=== PATIENT | male | born 1985 | race Caucasian/White ===

== ENCOUNTER 2024-09-02 21:03 | Emergency (ER) | payer MEDICAID, SELFPAY ==
--- NOTE | ~2024-09-02 | CT_ITS ---
CLINICAL HISTORY: pain CT abdomen and pelvis with contrast Comparison: None Findings: No consolidation or effusion. The gallbladder is significantly contracted. No biliary ductal dilatation. The liver, spleen, pancreas, adrenal glands and kidneys are unremarkable. No ureteral stones and no hydronephrosis hydroureter. No bowel obstruction, pneumoperitoneum, or pneumatosis. Normal appendix. No free fluid. Stomach is distended with ingested food. Urinary bladder only mildly filled with apparent wall thickening. Prostate is normal in size. Abdominal aorta is normal in size. Degenerative disc disease at L4-5 and L5-S1 IMPRESSION: 1. No acute findings. 2. Apparent urinary bladder wall thickening could be from bladder decompression but cystitis not excluded. Correlate with urinalysis. This document has been electronically signed by: Eugenia Ferguson MD on 09/03/2024 00:13:35
[2024-09-02 21:48] VITALS: BP 124/60; PULSE 75; RESP 16; TEMP 36.7; O2SAT 98; BMI 22.5
[2024-09-02 22:17] LABS: MANUAL DIFF FLAG NO
[2024-09-02 22:19] LABS: Basophils Percent Auto 0.3 % (0-2); Eosinophils Percent Auto 0.2 % (0-4); Hematocrit 39.2 % (42.0-52.0); Hemoglobin 13.7 g/dl (14.0-18.0); Imm Gran Abs Auto 0.03 X10*3/uL (0.00-0.03); Imm Gran Pct Auto 0.3 % (0.0-0.4); Lymphocytes Absolute Auto 2.6 X10*3/uL (1.2-4.9); Lymphocytes Percent Auto 23.6 % (20-40); Mean Corpuscular HGB Conc 34.9 g/dl (31.0-36.0); Mean Corpuscular Volume 91.6 fL (80.0-98.0); Mean Platelet Volume 10.3 fL (9.4-12.4); Monocytes Absolute Auto 0.7 X10*3/uL (0.1-1.2); Monocytes Percent Auto 5.8 % (2-11); Neutrophils Absolute Auto 7.8 x10*3/uL (2.0-8.3); Neutrophils Percent Auto 69.8 % (45-73); Platelet Count 247 X10*3/uL (160-400); Red Blood Count 4.28 X10*6/uL (4.60-5.80); Red Cell Distribution Width 12.6 % (11.0-16.0); White Blood Count 11.2 X10*3/uL (4.8-10.8)
[2024-09-02 22:20] LABS: Appearance Urine Clear; Color Urine Yellow; Glucose Urine UA Negative (Negative); Leukocyte Esterase Urine Negative (Negative); Nitrite Urine Negative (Negative); PH 5.5 (5.0-9.0); Specific Gravity - Urine >= 1.030 (1.005-1.025); Urine Blood Negative (Negative); Urine Ketones Trace mg/dL (Negative); Urine Protein Trace mg/dL (Neg-Trace)
[2024-09-02 22:35] LABS: Alanine Aminotransferase 13 U/L (0-40); Albumin Level 4.1 g/dL (3.5-5.0); Alkaline Phosphatase 71 U/L (39-117); Anion Gap 12 (12-20); Aspartate Amino Transferase 30 U/L (5-37); Bilirubin Total 0.3 mg/dL (0.0-1.0); Blood Urea Nitrogen 18 mg/dL (9-16); Calcium 8.7 mg/dL (8.4-10.2); Carbon Dioxide 29 mmol/L (22-29); Chloride 107 mmol/L (96-108); Creatinine Clr Calc Pharmacy 111.1; Estimated Glomerular Filt Rate > 60; Glucose Random 84 mg/dL (60-115); Lipase 21 U/L (8-78); Potassium 3.5 mmol/L (3.3-5.1); Sodium 144 mmol/L (135-145); Total Protein 7.1 g/dL (6.5-8.0)
--- OUTSIDE RECORDS SUMMARY | 2024-09-02 22:50 | XMS_ITS | Encounter Summary ---
Author Organization [facility] Address [address] [place] [address] Care Team Providers Care Date Night Caregiver Name Role Phone Matthew Wyatt MD Primary Care Provider [phone] Matthew Wyatt MD Unavailable [phone] Emilie Carrera Unavailable Rosalinda Baez MD Primary Care Provider [phone] Rosalinda Baez MD Unavailable Ramandeep Espinal PA-C Primary Care Provider [phone] Reason for Visit * Reason Comments Medication Refill Encounter Details Date Type Department Care Team (Late st Contact Info) Description 02/20/2021 Refill [facility] [address] [address] Matthew Wyatt MD [address] [place] [address] Insomnia, unspecified type Social History Tobacco Use Types Packs/Day Years Used Date Smoking Tobacco: Never Smokeless Tobacco: Never Alcohol Use Standard Drinks/Week Comments No 0 (1 standard drink = 0.6 oz pur e alcohol) PHQ-2 Answer Date Recorded PHQ-2 Total Score 3 09/26/2020 Sex and Gender Information Value Date Recorded Sex Assigned at Male 05/21/2024 8:18 PM EST Gender Identity Male 01/17/2023 11:55 AM EDT Sexual Orientation Heterosexual (straight) 05/21 8:18 PM EST COVID-19 Exposure Response Date Recorded In the last month, have you been in contact with someone who was confirmed or suspected to have Coronavirus / COVID-19? No / Unsure 02/18/2021 4:01 PM EDT documented as of this encounter Plan of Treatment Not on file documented as of this encounter Visit Diagnoses Diagnosis Insomnia, unspecified type documented in this encounter Care Teams Date Night Caregiver Relationship Specialty Start Date End Date Matthew Wyatt MD PCP - General Family Medicine 04/02/16 03/10/22 Matthew Wyatt MD [address] [place] [address] PCP - PCMH+ Attributed 05/30/19 2 Rosalinda Baez MD [address] [place] [address] PCP - General Family Medicine 03/11/22 01/16/23 Rosalinda Baez MD [address] [place] [address] PCP - PCMH+ Attributed 02/27/22 Ramandeep Espinal PA-C [address] [place] [address] PCP - General Adult Health - PA/APNP/NETWORK/TELECOM ENGINEER/BOOKING AGENT 01/17/23 Emilie Carrera [address] [address] ICP Transmission Systems Operator 04/18/2010/12 documented as of this encounter
--- OUTSIDE RECORDS SUMMARY | 2024-09-02 22:50 | XMS_ITS | Encounter Summary ---
Author Organization [facility] Address [address] [place] [address] Care Team Providers Care Douper Name Role Phone Matthew Wyatt MD Primary Care Provider [phone] Matthew Wyatt MD Unavailable [phone] Lisa Velásquez LCSW Unavailable [phone] Emilie Carrera Unavailable Rosalinda Baez MD Primary Care Provider [phone] Rosalinda Baez MD Unavailable Ramandeep Espinal PA-C Primary Care Provider [phone] Encounter Details Date Type Department Care Team (Late st Contact Info) Description 06/16/2016 Scanned Document [address] [phone] Matthew Wyatt MD [address] [place] [address] Social History Tobacco Use Types Packs/Day Years Used Date Smoking Tobacco: Unknown Alcohol Use Standard Drinks/Week Comments No 0 (1 standard drink = 0.6 oz pur e alcohol) Sex and Gender Information Value Date Recorded Sex Assigned at Male 05/21/2024 8:18 PM EST Gender Identity Male 01/17/2023 11:55 AM EDT Sexual Orientation Heterosexual (straight) 05/21 8:18 PM EST documented as of this encounter Plan of Treatment Not on file documented as of this encounter Visit Diagnoses Not on filedocumented in this encounter Care Teams Douper Relationship Specialty Start Date End Date Matthew Wyatt MD PCP - General Family Medicine 04/02/16 03/10/22 Matthew Wyatt MD [address] [place] [address] PCP - PCMH+ Attributed 05/30/19 2 Rosalinda Baez MD [address] [place] [address] PCP - General Family Medicine 03/11/22 01/16/23 Rosalinda Baez MD [address] [place] [address] PCP - PCMH+ Attributed 02/27/22 Ramandeep Espinal PA-C [address] [place] [address] PCP - General Adult Health - PA/APNP/MOLD FILLER AND DRAINER/CASH RECONCILIATION SPECIALIST 01/17/23 Lisa Velásquez, PROTOTYPE MACHINIST [address] [place] [address] ICP PCMH+ Facility Service Manager 01/10/18 06/24/19 Emilie Carrera [address] [facility] [address] [place] [address] ICP Inorganic Chemistry Professor 04/18/2010/12 documented as of this encounter
--- OUTSIDE RECORDS SUMMARY | 2024-09-02 22:50 | XMS_ITS | Encounter Summary ---
Author Organization [facility] Address [address] [place] [address] Care Team Providers Care Classification Analyst Name Role Phone Ramandeep Espinal PA-C Primary Care Provider [phone] Encounter Details Date Type Department Care Team (Late st Contact Info) Description 04/12/2023 Scanned Document [facility] [address] [facility] [place] [address] Checo Wu MD [address] [facility] [place] [facility] [address] [place] [address] Social History Tobacco Use Types Packs/Day Years Used Date Smoking Tobacco: Never Smokeless Tobacco: Never Alcohol Use Standard Drinks/Week Comments No 0 (1 standard drink = 0.6 oz pur e alcohol) PHQ-2 Answer Date Recorded PHQ-2 Total Score 6 03/11/2022 Sex and Gender Information Value Date Recorded Sex Assigned at Male 05/21/2024 8:18 PM EST Gender Identity Male 01/17/2023 11:55 AM EDT Sexual Orientation Heterosexual (straight) 05/21 8:18 PM EST documented as of this encounter Plan of Treatment Not on file documented as of this encounter Procedures Procedure Name Priority Date/Time Associated Diagnosis Comments PATHOLOGY REPORT 04/12/2023 12:0 0 AM EST documented in this encounter Results * PATHOLOGY REPORT (04/12/2023 12:00 AM EST) Checo Wu MD PATHOLOGY/CYTOLO GY ORDERABLES documented in this encounter Visit Diagnoses Not on filedocumented in this encounter Care Teams Classification Analyst Relationship Specialty Start Date End Date Ramandeep Espinal PA-C PCP - General Adult Health - PA/APNP/UTILITY OPERATOR YARN/BRICK STACKER 01/17/23 documented as of this encounter
--- OUTSIDE RECORDS SUMMARY | 2024-09-02 22:50 | XMS_ITS | Encounter Summary ---
Author Organization [facility] Address [address] [place] [address] Care Team Providers Care Index Clerk Name Role Phone Ramandeep Espinal PA-C Primary Care Provider [phone] Encounter Details Date Type Department Care Team (Late st Contact Info) Description 06/25/2023 Scanned Document [address] [place] [phone] Provider, Generic Social History Tobacco Use Types Packs/Day Years [...] Procedure Name Priority Date/Time Associated Diagnosis Comments HX OUTSIDE ORDER 06/25/2023 documented in this encounter Results * HX OUTSIDE ORDER (06/25/2023) Narrative 06/25/2023 Ordered by an unspecified provider. Generic Provider HX AMB PROCEDURES documented in this encounter Visit Diagnoses Not on filedocumented in this encounter Care Teams Index Clerk Relationship Specialty Start Date End Date Ramandeep Espinal PA-C PCP - General Adult Health - EMELY/MESERET/BOOT MAKER/TONJA 01/17/23 documented as of this encounter
--- OUTSIDE RECORDS SUMMARY | 2024-09-02 22:50 | XMS_ITS | Encounter Summary ---
Author Organization [facility] Address [address] [place] [address] Care Team Providers Care Digital Print Operator Name Role Phone Matthew Wyatt MD Primary Care Provider [phone] Matthew Wyatt MD Unavailable [phone] Lisa Velásquez LCSW Unavailable [phone] Emilie Carrera Unavailable Rosalinda Baez MD Primary Care Provider [phone] Rosalinda Baez MD Unavailable Ramandeep Espinal PA-C Primary Care Provider [phone] Encounter Details Date Type Department Care Team (Late st Contact Info) Description 07/28/2017 Scanned Document [address] [phone] Provider, Generic Social History Tobacco Use Types Packs/Day Years Used Date Smoking Tobacco: Never Alcohol Use Standard Drinks/Week Comments [...] on filedocumented in this encounter Care Teams Digital Print Operator Relationship Specialty Start Date End Date Matthew Wyatt MD PCP - General Family Medicine 04/02/16 03/10/22 Matthew Wyatt MD [address] [place] [address] [place] [address] PCP - PCMH+ Attributed 05/30/19 2 Rosalinda Baez MD [address] [place] [address] PCP - General Family Medicine 03/11/22 01/16/23 Rosalinda Baez MD [address] [place] [address] PCP - PCMH+ Attributed 02/27/22 Ramandeep Espinal PA-C [address] [place] [address] PCP - General Adult Health - PA/APNP/FRONT LOAD TRASH TRUCK DRIVER/CRANE MECHANIC 01/17/23 Lisa Velásquez, TECHNICAL MAINTENANCE SPECIALIST [address] [place] [address] ICP PCMH+ Sheltered Workshop Executive Director 01/10/18 06/24/19 Emilie Carrera [address] [address] ICP Lining Marker 04/18/2010/12 documented as of this encounter
--- OUTSIDE RECORDS SUMMARY | 2024-09-02 22:50 | XMS_ITS | Encounter Summary ---
Author Organization [facility] Address [address] [place] [address] Care Team Providers Care Dermatologist Managing Partner Name Role Phone Matthew Wyatt MD Primary Care Provider [phone] Matthew Wyatt MD Unavailable [phone] Lisa Velásquez LCSW Unavailable [phone] Emilie Carrera Unavailable Rosalinda Baez MD Primary Care Provider [phone] Rosalinda Baez MD Unavailable Ramandeep Espinal PA-C Primary Care Provider [phone] Encounter Details Date Type Department Care Team (Late st Contact Info) Description 08/06/2017 Scanned Document [address] [address] Provider, Generic Social History Tobacco Use Types [...] on filedocumented in this encounter Care Teams Dermatologist Managing Partner Relationship Specialty Start Date End Date Matthew Wyatt MD PCP - General Family Medicine 04/02/16 03/10/22 Matthew Wyatt MD [address] [place] [address] [place] [address] PCP - PCMH+ Attributed 05/30/19 2 Rosalinda Baez MD [address] [place] [address] PCP - General Family Medicine 03/11/22 01/16/23 Rosalinda Baez MD [address] [place] [address] PCP - PCMH+ Attributed 02/27/22 Ramandeep Espinal PA-C [address] [place] [address] PCP - General Adult Health - PA/APNP/PHILOSOPHY FACULTY/REPEATER OPERATOR 01/17/23 Lisa Velásquez, FREIGHT AGENT [address] [place] [address] ICP PCMH+ Pigeon Fancier 01/10/18 06/24/19 Emilie Carrera [address] [address] ICP Patient Care Assistant 04/18/2010/12 documented as of this encounter
--- OUTSIDE RECORDS SUMMARY | 2024-09-02 22:50 | XMS_ITS | Encounter Summary ---
Author Organization [facility] Address [address] [place] [address] Care Team Providers Care Mental Health Case Manager Name Role Phone Matthew Wyatt MD Primary Care Provider [phone] Matthew Wyatt MD Unavailable [phone] Lisa Velásquez LCSW Unavailable [phone] Emilie Carrera Unavailable Rosalinda Baez MD Primary Care Provider [phone] Rosalinda Baez MD Unavailable Ramandeep Espinal PA-C Primary Care Provider [phone] Encounter Details Date Type Department Care Team (Late st Contact Info) Description 08/16/2017 Scanned Document [address] [address] Provider, Generic Social History Tobacco Use Types [...] Name Priority Date/Time Associated Diagnosis Comments HX GASTROENTEROLOGY COLONOSCOPY-SCAN 08/16/2017 documented in this encounter Results * HX GASTROENTEROLOGY COLONOSCOPY-SCAN (08/16/2017) Narrative 08/16/2017 Ordered by an unspecified provider. Generic Provider HX AMB PROCEDURES documented in this encounter Visit Diagnoses Not on filedocumented in this encounter Care Teams Mental Health Case Manager Relationship Specialty Start Date End Date Matthew Wyatt MD PCP - General Family Medicine 04/02/16 03/10/22 Matthew Wyatt MD [address] [place] [address] PCP - PCMH+ Attributed 05/30/19 2 Rosalinda Baez MD [address] [place] [address] PCP - General Family Medicine 03/11/22 01/16/23 Rosalinda Baez MD [address] [place] [address] PCP - PCMH+ Attributed 02/27/22 Ramandeep Espinal PA-C [address] [place] [address] PCP - General Adult Health - PA/APNP/BAIL BONDING AGENT/WOVEN LABEL DESIGNER 01/17/23 Lisa Velásquez, CUT OUT AND MARKING MACHINE OPERATOR [address] [place] [address] [facility] PCMH+ Radio Commentator 01/10/18 06/24/19 Emilie Carrera [address] [place] [address] ICP Library Media Specialist 04/18/2010/12 documented as of this encounter
--- OUTSIDE RECORDS SUMMARY | 2024-09-02 22:50 | XMS_ITS | Clinical Summary ---
Author Organization [facility] Address [address] [place] [address] Care Team Providers Care Ambulance Driver Name Role Phone Ramandeep Espinal PA-C Primary Care Provider [phone] Allergies No known active allergies Medications Medication Sig Dispensed Refills Start Date End Date Status multivitamin with minerals (PRESERVISION AREDS 2) capsuleIndications:V itamin D deficiency Take 1 capsule by mouth daily. 90 capsule 5 02/18/2021 Active tretinoin (RETIN-A) 0.025 % creamIndications:Acn e, unspecified acne type Apply topically nightly. 90 g 3 10/08/2021 Active clindamycin-benzoyl peroxide (BENZACLIN) 1-5 % external gelIndications:Acne, unspecified acne type Apply topically 2 (two) times a day. Dispense Pump Gel 35 g. 150 g 3 10/08/2021 Active sildenafil (VIAGRA) 50 MG tabletIndications:Er ectile dysfunction, unspecified erectile dysfunction type Take 1 tablet (50 mg total) by mouth daily as needed for erectile dysfunction. 30 tablet 3 10/08/2021 Active cyanocobalamin (VITAMIN B-12) 500 MCG tabletIndications:B1 2 deficiency Take 1 tablet (500 mcg total) by mouth daily. 90 tablet 3 10/11/2021 Active naproxen (NAPROSYN) 500 MG tablet Take 1 tablet (500 mg total) by mouth 2 (two) times a day as needed for mild pain (pain). Take with food 14 tablet 11/23/2021 Active hydrOXYzine HCl (ATARAX) 50 MG tabletIndications:Re current major depressive disorder, in remission Take 1 tablet (50 mg total) by mouth 4 times daily (every 6 hours) as needed for anxiety. 120 tablet 03/11/2022 Active doxycycline (MONODOX) 100 MG capsuleIndications:E xposure to chlamydia Take 1 capsule (100 mg total) by mouth 2 (two) times a day. 14 capsule 03/11/2022 Active meloxicam (MOBIC) 15 MG tabletIndications:Ac collin left-sided low back pain without sciatica Take 1 tablet (15 mg total) by mouth daily. 30 tablet 1 06/28/2022 Active OMEprazole (PriLOSEC) 40 MG capsuleIndications:G astroesophageal reflux disease, unspecified whether esophagitis present TAKE 1 CAPSULE BY MOUTH EVERY DAY IN THE MORNING BEFORE BREAKFAST 90 capsule 07/01/2023 Active Active Problems Problem Noted Date Diagnosed Date Diarrhea 03/31/2023 Gastroesophageal reflux disease 03/31/2023 History of colon polyps 03/31/2023 Weight loss 03/31/2023 Rectal bleeding 03/31/2023 Epigastric pain 03/31/2023 Possible exposure to STD 06/28/2022 Assessment & Plan (06/28/2022 9:13 AM EST): Labs obtained. UA obtained at [facility]-unremarkable. Will hold on empirical treatment at this time for G/C. Encouraged condom use. Right elbow pain 01/28/2021 Low back pain 01/28/2020 Assessment & Plan (06/28/2022 9:09 AM EST): Unremarkable PE XR obtained at [facility] also unremarkable per chart review No radiculopathy No red flags Mobic for symptomatic relief Referral to Physical therapy at this time. Robaxin discontinued no relief of symptoms Discouraged opiate use Activity as tolerated. Encouraged to stay active Reassured pain will resolve in a few weeks Reinforced good lifting techniques Provided w/ back exercises handout Syncope 06/10/2016 Recurrent major depressive disorder, in remissio n 04/02/2016 Assessment & Plan (03/11/2022 1:08 PM EDT): Uncontrolled. Noncompliant w/ medication. PHQ-9 Score: 21 Restart Lexapro 10 mg daily. Encouraged therapy Recommended mindfulness meditation and exercise. Sleep hygiene. Psychoeducation: encouraged personality growth and development through coping techniques and problem-solving skills. Discussed safety plan/ Immunizations Name Administration Dates Next Due Covid-19 MRNA Primary Series Vaccine - Pfizer 12+ Domenico-Sucrose 10/08/2021 Covid-19 MRNA Vaccine - Pfiz er 12+ (Purple Cap) 01/16/2021,12/26/2020 Influenza Inactivated/Split Preservative Free IM 04/03/2019,04/12/2018,03/07/2017,2015 Tdap 03/07/2017 Family History Medical History Relation Name Comments No Known Problems Brother No Known Problems Cousin No Known Problems Father No Known Problems Maternal Aunt No Known Problems Maternal Grandfather No Known Problems Maternal Grandmother No Known Problems Maternal Uncle No Known Problems Mother No Known Problems Paternal Aunt No Known Problems Paternal Grandfather No Known Problems Paternal Grandmother No Known Problems Paternal Uncle No Known Problems Sister Relation Name Status Comments Brother Cousin Father Maternal Aunt Maternal Grandfather Maternal Grandmother Maternal Uncle Mother Paternal Aunt Paternal Grandfather Paternal Grandmother Paternal Uncle Sister Social History Tobacco Use Types Packs/Day Years Used Date Smoking Tobacco: Never Smokeless Tobacco: Never Tobacco Cessation:Counseling Given: Not Answered Alcohol Use Standard Drinks/Week Comments No 0 (1 standard drink = 0.6 oz pur e alcohol) PHQ-2 Answer Date Recorded PHQ-2 Total Score 6 03/11/2022 Sex and Gender Information Value Date Recorded Sex Assigned at Male 05/21/2024 8:18 PM EST Gender Identity Male 01/17/2023 11:55 AM EDT Sexual Orientation Heterosexual (straight) 05/21 8:18 PM EST Last Filed Vital Signs Vital Sign Reading Time Taken Comments Blood Pressure 123/86 05/21/2024 7:28 PM EST Pulse 78 05/21/2024 7:28 PM EST Temperature 36.7 ??C (98 ??F) 05/21/2024 7:28 PM EST Respiratory Rate 16 05/21/2024 7:28 PM EST Oxygen Saturation 100% 05/21/2024 7:28 PM EST Inhaled Oxygen Concentration - - Weight 62.5 kg (137 lb 12.6 oz) 05/21/2024 7:28 PM EST Height 167.6 cm (5' 6 ) 05/21/2024 7:28 PM EST Body Mass Index 22.24 05/21/2024 7:28 PM EST Plan of Treatment Health Maintenance Due Date Last Done Comments Hepatitis B Vaccines (1 of 3 - 19+ 3-dose series) 02/01/2003 Influenza Vaccine 12/29/2023 04/03/2019, , 03/07/2017, Additional history exists COVID-19 Vaccine ( season) 2024 10/08/2021, 01/16/2021, 12/26/2020 DTaP/Tdap/Td Vaccines (2 - Td or Tdap) 03/07/2027 03/07/2017 Hepatitis C Virus Screening Completed 02/27, 10/08/2021, 04/03/2019 HIV Screening Completed 05/21/2024, 06/01, 03/11/2022, Additional history exists HPV Vaccines Aged Out No longer eligi ble based on patient's age to complete this topic Pneumococcal Vaccine: Pediatric (0-5 Years) and At-Risk Patients (6 to 49 Years) Aged Out No longer eligible based on patient's age to complete this topic Procedures Procedure Name Priority Date/Time Associated Diagnosis Comments HIV 1/2 AG/AB CMIA REFLEX TO CONFIRMATION STAT 05/21/2024 7:36 PM EST HEPATITIS C VIRUS (HCV) ANTIBODY Routine 03/11/2022 11:10 AM EDT Exposure to STD from Last 3 Months or Most Recently Relevant to Health Maintenance Results * HIV 1/2 Ag/Ab CMIA Reflex to Confirmation (05/21/2024 7:36 PM EST) HIV 1/2 Ag/Ab CMIA Nonreactive Nonreactive 05/22/2024 11:10 AM EST [facility] Comment: Results show no evidence of infection by HIV 1/2. If clinically indicated, repeat CMIA or test by nucleic acid amplification. HIV 1/2 Antigen/Antibody CMIA reflex to confirmation AND HIV-1 RNA viral load recommended in patients who are taking or have recently taken PrEP. Blood Serum specimen / Unknown 05/21/2024 7:36 PM EST 05/21/2024 7:45 PM EST Pilar Estrada DO LAB BLOOD ORDERABL ES [facility] [address] [place] [address], * Hepatitis C Antibody (03/11/2022 11:10 AM EDT) Hepatitis C Antibody NON-REACT BECCA NON-REACT BECCA Spectral Image Hepatitis C Antibody (s/co) 0.10 <1.00 Spectral Image Comment: HCV antibody was non-reactive. There is no laboratory evidence of HCV infection. In most cases, no further action is required. However, if recent HCV exposure is suspected, a test for HCV RNA (test code 58531) is suggested. For additional information please refer to http://education.QuickMobile/faq/IYF23f9 (This link is being provided for informational/ educational purposes only.) Blood specimen (specimen) Blood specimen / Unknown 03/11/2022 11:10 AM EDT 03/11/2022 11:10 AM EDT Luciana HAN LAB BLOOD ORDERABLES [facility] [address] [place] [address], [place] [address] from Last 3 Months or Most Recently Relevant to Health Maintenance Care Teams Ambulance Driver Relationship Specialty Start Date End Date Ramandeep Espinal PA-C PCP - General Adult Health - EMELY/MESERET/PREPARED FOODS PRODUCTION TEAM MEMBER/CONSTRUCTION EQUIPMENT MECHANIC 01/17/23
--- OUTSIDE RECORDS SUMMARY | 2024-09-02 22:50 | XMS_ITS | Encounter Summary ---
Author Organization [facility] Address [address] [place] [address] Care Team Providers Care Marble Polisher Hand Name Role Phone Matthew Wyatt MD Primary Care Provider [phone] Matthew Wyatt MD Unavailable [phone] Lisa Velásquez LCSW Unavailable [phone] Emilie Carrera Unavailable Rosalinda Baez MD Primary Care Provider [phone] Rosalinda Baez MD Unavailable Ramandeep Espinal PA-C Primary Care Provider [phone] Encounter Details Date Type Department Care Team (Late st Contact Info) Description 04/26/2016 Scanned Document [address] [address] Provider, Generic Social History Tobacco Use Types [...] Procedure Name Priority Date/Time Associated Diagnosis Comments STRESS TEST 04/26/2016 documented in this encounter Results * STRESS TEST (04/26/2016) Anatomical Region Laterality Modality Other Narrative 04/27/2016 5:57 AM EST Ordered by an unspecified provider. Generic Provider HX AMB PROCEDURES documented in this encounter Visit Diagnoses Not on filedocumented in this encounter Care Teams Marble Polisher Hand Relationship Specialty Start Date End Date Matthew Wyatt MD PCP - General Family Medicine 04/02/16 03/10/22 Matthew Wyatt MD [address] [place] [address] PCP - PCMH+ Attributed 05/30/19 2 Rosalinda Baez MD [address] [place] [address] PCP - General Family Medicine 03/11/22 01/16/23 Rosalinda Baez MD [address] [place] [address] PCP - PCMH+ Attributed 02/27/22 Rmaandeep Espinal PA-C [address] [place] [address] PCP - General Adult Health - PA/APNP/COMMERCIAL LINES ACCOUNT MANAGER/LOFTSMAN 01/17/23 Lisa Velásquez, POULTRY SERVICE TECHNICIAN [address] [place] [address] [facility] PCMH+ Shirt Finisher 01/10/18 06/24/19 Emilie Carrera [address] [place] [address] ICP Boiler Coverer Helper 04/18/2010/12 documented as of this encounter
--- OUTSIDE RECORDS SUMMARY | 2024-09-02 22:50 | XMS_ITS | Encounter Summary ---
Author Organization [facility] Address [address] [place] [address] Care Team Providers Care Community Life Director Name Role Phone Matthew Wyatt MD Primary Care Provider [phone] Matthew Wyatt MD Unavailable [phone] Lisa Velásquez LCSW Unavailable [phone] Emilie Carrera Unavailable Rosalinda Baez MD Primary Care Provider [phone] Rosalinda Baez MD Unavailable Ramandeep Espinal PA-C Primary Care Provider [phone] Encounter Details Date Type Department Care Team (Late st Contact Info) Description 07/12/2016 Scanned Document [address] [id number] Matthew Wyatt MD [address] [place] [address] Social History Tobacco Use Types Packs/Day Years [...] on filedocumented in this encounter Care Teams Community Life Director Relationship Specialty Start Date End Date Matthew Wyatt MD PCP - General Family Medicine 04/02/16 03/10/22 Matthew Wyatt MD [address] [place] [address] PCP - PCMH+ Attributed 05/30/19 2 Rosalinda Baez MD [address] [place] [address] PCP - General Family Medicine 03/11/22 01/16/23 Rosalinda Baez MD [address] [place] [address] PCP - PCMH+ Attributed 02/27/22 Ramandeep Espinal PA-C [address] [place] [address] PCP - General Adult Health - PA/APNP/INSURANCE SALES PRODUCER/SEASONAL GREENERY BUNDLER 01/17/23 Lisa Velásquez, NEEDLE LEADER [address] [place] [address] ICP PCMH+ Precision Millwright 01/10/18 06/24/19 Emilie Carrera [address] [facility] [address] [place] [address] ICP Auto Clutch Rebuilder 04/18/2010/12 documented as of this encounter
--- OUTSIDE RECORDS SUMMARY | 2024-09-02 22:50 | XMS_ITS | Encounter Summary ---
Author Organization [facility] Address [address] [place] [address] Care Team Providers Care Construction Analyst Name Role Phone Matthew Wyatt MD Primary Care Provider [phone] Matthew Wyatt MD Unavailable [phone] Lisa Velásquez LCSW Unavailable [phone] Emilie Carrera Unavailable Rosalinda Baez MD Primary Care Provider [phone] Rosalinda Baez MD Unavailable Ramandeep Espinal PA-C Primary Care Provider [phone] Encounter Details Date Type Department Care Team (Late st Contact Info) Description 06/30/2017 Scanned Document [address] [address] Provider, Generic Social History Tobacco Use Types [...] on filedocumented in this encounter Care Teams Construction Analyst Relationship Specialty Start Date End Date Matthew Wyatt MD PCP - General Family Medicine 04/02/16 03/10/22 Matthew Wyatt MD [address] [place] [address] [place] [address] PCP - PCMH+ Attributed 05/30/19 2 Rosalinda Baez MD [address] [place] [address] PCP - General Family Medicine 03/11/22 01/16/23 Rosalinda Baez MD [address] [place] [address] PCP - PCMH+ Attributed 02/27/22 Ramandeep Espinal PA-C [address] [place] [address] PCP - General Adult Health - PA/APNP/EASEMENT MAN/INSURANCE ACTUARY 01/17/23 Lisa Velásquez, ELEVATOR CONDUCTOR [address] [place] [address] ICP PCMH+ Warp Yarn Sorter 01/10/18 06/24/19 Emilie Carrera [address] [address] ICP Television Tube Inspector 04/18/2010/12 documented as of this encounter
--- OUTSIDE RECORDS SUMMARY | 2024-09-02 22:50 | XMS_ITS | Clinical Summary ---
Author Organization [facility] Address [address] [place] [address] Care Team Providers Care Pocket Operator Name Role Phone Pcp, No MD Primary Care Provider Unavailabl e Allergies No known active allergies Medications No known medications Social History Tobacco Use Types Packs/Day Years Used Date Smoking Tobacco: Never Smokeless Tobacco: Never Tobacco Cessation:Counseling Given: Not Answered Alcohol Use Standard Drinks/Week Comments Never 0 (1 standard drink = 0.6 oz pur e alcohol) Sex and Gender Information Value Date Recorded Sex Assigned at Not on file Legal Sex Male 1:38 AM EST Gender Identity Not on file Sexual Orientation Not on file Last Filed Vital Signs Vital Sign Reading Time Taken Comments Blood Pressure 113/76 11/21/2023 2:28 AM EDT Pulse 68 11/21/2023 2:28 AM EDT Temperature 36.2 ??C (97.2 ??F) 11/21/2023 2:28 AM ED T Respiratory Rate 18 11/21/2023 2:28 AM EDT Oxygen Saturation 98% 11/21/2023 2:28 AM EDT Inhaled Oxygen Concentration - - Weight 55.3 kg (122 lb) 05/26/2022 7:23 PM EST Height 167.6 cm (5' 6 ) 05/26/2022 7:23 PM EST Body Mass Index 19.69 05/26/2022 7:23 PM EST Plan of Treatment Health Maintenance Due Date Last Done Comments HIV Screening 1985 Hepatitis C Screening 02/01/2002 Hepatitis B Vaccines (1 of 3 - 19+ 3-dose series) 02/01/2003 COVID-19 Vaccine ( season) 2024 10/08/2021, 01/16/2021, 12/26/2020 Influenza Vaccine (Season Ended) 2025 04/03/2019, 04/12/2018, 03/07/2017, Additional history exists DTaP,Tdap,and Td Vaccines (2 - Td or Tdap) 03/07/2027 03/07/2017 Zoster Vaccines (1 of 2) 02/01/2034 HPV Vaccines Aged Out No longer eligi ble based on patient's age to complete this topic Hepatitis A Vaccines Aged Out No long er eligible based on patient's age to complete this topic MMR Vaccines Aged Out No longer eligi ble based on patient's age to complete this topic Meningococcal Vaccine Aged Out No venkata maranda eligible based on patient's age to complete this topic Pneumococcal Vaccine: Pediatrics (0 to 5 Years) and At-Risk Patients (6 to 49 Years) Aged Out No longer eligible based on patient's age to complete this topic Insurance MEDICAID HUSKY A * Guarantor: TIFFANY KNOWLES Account Type Relation to Patient Date of Phone Billing Address [facility] [employer]rections State DOC State 1985 [facility] [address] [place] [id number] Care Teams Pocket Operator Relationship Specialty Start Date End Date Geraldine Jacob MD [address] [place] [address] PCP - General Internal Medicine 05/26/22
--- OUTSIDE RECORDS SUMMARY | 2024-09-02 22:50 | XMS_ITS | Encounter Summary ---
Author Organization [facility] Address [address] [place] [address] Care Team Providers Care General Machinist Name Role Phone Matthew Wyatt MD Primary Care Provider [phone] Matthew Wyatt MD Unavailable [phone] Lisa Velásquez LCSW Unavailable [phone] Emilie Carrera Unavailable Rosalinda Baez MD Primary Care Provider [phone] Rosalinda Baez MD Unavailable Ramandeep Espinal PA-C Primary Care Provider [phone] Encounter Details Date Type Department Care Team (Late st Contact Info) Description 08/16/2017 Scanned Document [address] [phone] Provider, Generic Social History Tobacco Use Types [...] Priority Date/Time Associated Diagnosis Comments HX GASTROENTEROLOGY UPPER ENDOSCOPY-SCAN 08/16/2017 documented in this encounter Results * HX GASTROENTEROLOGY UPPER ENDOSCOPY-SCAN (08/16/2017) Narrative 08/16/2017 Ordered by an unspecified provider. Generic Provider HX AMB PROCEDURES documented in this encounter Visit Diagnoses Not on filedocumented in this encounter Care Teams General Machinist Relationship Specialty Start Date End Date Matthew Wyatt MD PCP - General Family Medicine 04/02/16 03/10/22 Matthew Wyatt MD [address] [place] [address] PCP - PCMH+ Attributed 05/30/19 2 Rosalinda Baez MD [address] [place] [address] PCP - General Family Medicine 03/11/22 01/16/23 Rosalinda Baez MD [address] [place] [address] PCP - PCMH+ Attributed 02/27/22 Ramandeep Espinal PA-C [address] [place] [address] PCP - General Adult Health - PA/APNP/KNITTING DEMONSTRATOR/NITROGLYCERIN NEUTRALIZER 01/17/23 Lisa Velásquez, ACADEMIC PROGRAM SPECIALIST [address] [place] [address] [facility] PCMH+ Metal Base Blocker 01/10/18 06/24/19 Emilie Carrera [address] [place] [address] ICP Gun Fitter 04/18/2010/12 documented as of this encounter
--- OUTSIDE RECORDS SUMMARY | 2024-09-02 22:50 | XMS_ITS | Encounter Summary ---
Author Organization [facility] Address [address] [place] [address] Care Team Providers Care Photography Assistant Name Role Phone Matthew Wyatt MD Primary Care Provider [phone] Matthew Wyatt MD Unavailable [phone] Lisa Velásquez LCSW Unavailable [phone] Emilie Carrera Unavailable Rosalinda Baez MD Primary Care Provider [phone] Rosalinda Baez MD Unavailable Ramandeep Espinal PA-C Primary Care Provider [phone] Encounter Details Date Type Department Care Team (Late st Contact Info) Description 08/16/2017 Scanned Document [address] [address] Provider, Generic Social History Tobacco Use Types [...] on filedocumented in this encounter Care Teams Photography Assistant Relationship Specialty Start Date End Date Matthew Wyatt MD PCP - General Family Medicine 04/02/16 03/10/22 Matthew Wyatt MD [address] [place] [address] PCP - PCMH+ Attributed 05/30/19 2 Rosalinda Baez MD [address] [place] [address] PCP - General Family Medicine 03/11/22 01/16/23 Rosalinda Baez MD [address] [place] [address] PCP - PCMH+ Attributed 02/27/22 Ramandeep Espinal PA-C [address] [place] [address] PCP - General Adult Health - PA/APNP/FEDERAL APPELLATE LAW CLERK/LOCKSTITCH BINDER 01/17/23 Lisa Velásquez, INSTRUCTIONAL DESIGN SPECIALIST [address] [place] [address] [facility] PCMH+ Nursing Clerk 01/10/18 06/24/19 Emilie Carrera [address] [place] [address] ICP Loom Overhauler 04/18/2010/12 documented as of this encounter
--- OUTSIDE RECORDS SUMMARY | 2024-09-02 22:50 | XMS_ITS | Encounter Summary ---
Author Organization [facility] Address [address] [place] [address] Care Team Providers Care Psychiatric Nurse Name Role Phone Matthew Wyatt MD Primary Care Provider [phone] Matthew Wyatt MD Unavailable [phone] Lisa Velásquez LCSW Unavailable [phone] Emilie Carrera Unavailable Rosalinda Baez MD Primary Care Provider [phone] Rosalinda Baez MD Unavailable Ramandeep Espinal PA-C Primary Care Provider [phone] Encounter Details Date Type Department Care Team (Late st Contact Info) Description 06/21/2016 Scanned Document [address] [phone] Matthew Wyatt MD [address] [place] [address] Social History Tobacco Use Types Packs/Day Years [...] on filedocumented in this encounter Care Teams Psychiatric Nurse Relationship Specialty Start Date End Date Matthew Wyatt MD PCP - General Family Medicine 04/02/16 03/10/22 Matthew Wyatt MD [address] [place] [address] PCP - PCMH+ Attributed 05/30/19 2 Rosalinda Baez MD [address] [place] [address] PCP - General Family Medicine 03/11/22 01/16/23 Rosalinda Baez MD [address] [place] [address] PCP - PCMH+ Attributed 02/27/22 Ramandeep Espinal PA-C [address] [place] [address] PCP - General Adult Health - PA/APNP/SENIOR SUPPORT ENGINEER/MOLDER 01/17/23 Lisa Velásquez, LOAN OFFICER [address] [place] [address] ICP PCMH+ Mexican Food Cook 01/10/18 06/24/19 Emilie Carrera [address] [facility] [address] [place] [address] ICP Memory Care Program Resident 04/18/2010/12 documented as of this encounter
[2024-09-02 23:06] VITALS: BP 105/65; PULSE 76; RESP 16; TEMP 36.6; O2SAT 95
[2024-09-02] MEDS: iohexoL 350 MG/ML 100 ML INFUS..BTL 85 ML IV (23:41)
[2024-09-02] MEDS: ondansetron HCL 4 MG/2 ML VIAL IVPUSH (23:46)
[2024-09-02] MEDS: Ketorolac Tromethamine 15 MG/ML VIAL IVPUSH (23:46)
[2024-09-02] MEDS: 0.9 % Sodium Chloride 1,000 ML 999 ML IV (23:49)
--- NOTE | 2024-09-03 00:22 | ED_ITS ---
HPI - General Adult General Chief complaint: Nausea/Vomiting/Diarrhea Stated complaint: abd pain / urinating a lot Time Seen by Provider: 09/02/24 23:10 Source: patient Limitations: no limitations History of Present Illness ED Provider: Magdalena Vazquez PA-C HPI narrative: 39-year-old male presents with the abdominal pain x1 week. Pain generalized, unable to describe the nature of his discomfort. Patient states whenever he eats, he develops severe abdominal cramping radiating to the back, with a subsequent development of nausea vomiting diarrhea. Denies fever. Denies travel out of the country, recent use of antibiotics or hospitalization. Patient is having episodes of diarrhea every time he tries to eat. Patient relayed to the provider in triage that he has ?strangers in his home that his family invited, he thinks they made him sick because they are homeless?. The patient was stated I want want a full workup for all diseases?. Related Data Previous Rx's ?Medication ?Instructions ?Recorded dicyclomine 20 mg tablet 20 mg PO TID PRN abdominal pain 09/03/24 #10 tabs ondansetron HCl 4 mg tablet 4 mg PO Q8H PRN nausea and 09/03/24 vomiting #10 tabs Allergies Allergy/AdvReac Type Severity Reaction Status Date / Time No Known Allergies Allergy Verified 09/02/24 21:52 Review of Systems 2 Review of Systems: Yes all other systems are reviewed and are negative Constitutional: Constitutional: Denies fatigue and Denies fever(s) Cardiovascular: Cardiovascular: Denies chest pain and Denies dyspnea Respiratory: Respiratory: Denies cough and Denies dyspnea Gastrointestinal: Gastrointestinal: Reports abdominal pain, Reports diarrhea, Reports nausea and Reports vomiting Genitourinary: Genitourinary: Denies dysuria Endocrine: Endocrine: Denies fatigue [facility] Past Medical History Attestation statement: The following information was validated with the patient. Social History Social History Advance Directives: No Advance Directives Information Provided: Yes Do you have a plan to hurt others: No Plan Physical Exam ED Vital Signs: Vital Signs - 24 hr 09/02/24 21:48 09/02/24 23:06 Temperature 98.1 F 97.8 F Pulse Rate 75 76 Respiratory Rate 16 16 Blood Pressure 124/60 105/65 Pulse Oximetry 98 95 Oxygen Delivery Method Room Air Room Air BMI result Body Mass Index 22.5 Const Other: Alert well-appearing Orientation/consciousness: patient oriented x3 Resp Effort & Inspection: normal respiratory effort Cardio Other: Normal peripheral perfusion GI Other: Abdomen is soft, nondistended, mild generalized to palpation, tenderness seems to be most prominent mid to left abdomen, no objective guarding Skin Other: Warm dry no rash Neuro General: patient oriented x3, gait normal, no focal motor deficits and CN's II- XI intact bilaterally Psych Other: Cooperative Medications Administered Discontinued Medications Generic Name Dose Route Start Last Admin Trade Name Trang PRN Reason Stop Dose Admin Sodium Chloride 1,000 mls @ 999 mls/hr 09/02/24 23:30 09/02/24 23:49 Ns IV 09/03/24 00:30 999 mls/hr .Q1H1M MYNOR Administration Iohexol 85 ml 09/02/24 23:41 09/02/24 23:41 Iohexol 350 Mg/Ml 100 Ml Infus..Btl IV 09/02/24 23:42 85 ml ONCE ONE Administration Ketorolac Tromethamine 15 mg 09/02/24 23:28 09/02/24 23:46 Ketorolac Tromethamine 15 Mg/Ml Vial IVPUSH 09/02/24 23:29 15 mg ONCE ONE Administration Ondansetron HCl 4 mg 09/02/24 23:28 09/02/24 23:46 Ondansetron Hcl 4 Mg/2 Ml Vial IVPUSH 09/02/24 23:29 4 mg ONCE ONE Administration Medical Decision Making Medical Decision Making MDM Narrative: 39-year-old male presents with the abdominal pain x1 week. Pain generalized, unable to describe the nature of his discomfort. Patient states whenever he eats, he develops severe abdominal cramping radiating to the back, with a subsequent development of nausea vomiting diarrhea. Denies fever. Denies travel out of the country, recent use of antibiotics or hospitalization. Patient is having episodes of diarrhea every time he tries to eat. Patient relayed to the provider in triage that he has ?strangers in his home that his family invited, he thinks they made him sick because they are homeless?. The patient was stated I want want a full workup for all diseases?. No relevant chronic issues History: Per patient I have considered the following differential diagnoses: Viral gastroenteritis, C diff, traveler's diarrhea, diverticulitis, colitis, biliary colic Plan: Screening labs were already obtained from triage. The patient has no risk factors for C diff or traveler's diarrhea. This may just be viral gastroenteritis. Given postprandial symptoms, I considered biliary colic. However there was no focal right upper quadrant pain, LFTs are normal. He is having somewhat left-sided symptoms, this could be diverticulitis. We will be obtaining a CT scan, giving fluid Toradol and Zofran I have independently reviewed the following tests: Labs: Slight leukocytosis, not anemic, no electrolyte abnormality, urine not infected CT abdomen and pelvis:he gallbladder is significantly contracted. No biliary ductal dilatation. The liver, spleen, pancreas, adrenal glands and kidneys are unremarkable. No ureteral stones and no hydronephrosis hydroureter. No bowel obstruction, pneumoperitoneum, or pneumatosis. Normal appendix. No free fluid. Stomach is distended with ingested food. Urinary bladder only mildly filled with apparent wall thickening. Prostate is normal in size. Abdominal aorta is normal in size. Degenerative disc disease at L4-5 and L5-S1 IMPRESSION: 1. No acute findings. 2. Apparent urinary bladder wall thickening could be from bladder decompression but cystitis not excluded. Correlate with urinalysis. Lab Data 09/02/24 22:13 09/02/24 22:13 Labs: Lab Results 09/02/24 Range/Units 22:13 WBC 11.2 H (4.8-10.8) X10*3/uL RBC 4.28 L (4.60-5.80) X10*6/uL Hgb 13.7 L (14.0-18.0) g/dl Hct 39.2 L (42.0-52.0) % MCV 91.6 (80.0-98.0) fL MCH 32.0 (27.0-33.0) pg MCHC 34.9 (31.0-36.0) g/dl RDW 12.6 (11.0-16.0) % Plt Count 247 (160-400) X10*3/uL MPV 10.3 (9.4-12.4) fL Immature Gran % (Auto) 0.3 (0.0-0.4) % Neut % (Auto) 69.8 (45-73) % Lymph % (Auto) 23.6 (20-40) % [place]house % (Auto) 5.8 (2-11) % Eos % (Auto) 0.2 (0-4) % Baso % (Auto) 0.3 (0-2) % Lymph # (Auto) 2.6 (1.2-4.9) X10*3/uL [place] # (Auto) 0.7 (0.1-1.2) X10*3/uL Eos # (Auto) 0.0 (0.0-0.4) X10*3/uL Baso # (Auto) 0.0 (0.0-0.2) X10*3/uL Abs Immat Gran (auto) 0.03 (0.00-0.03) X10*3/uL Absolute Neuts (auto) 7.8 (2.0-8.3) x10*3/uL Absolute Nucleated RBC 0.000 (0.0-0.012) X10*3/uL Nucleated RBC % (auto) 0.0 (0.0-0.2) /100WBC Sodium 144 (135-145) mmol/L Potassium 3.5 (3.3-5.1) mmol/L Chloride 107 (96-108) mmol/L Carbon Dioxide 29 (22-29) mmol/L Anion Gap 12 (12-20) BUN 18 H (9-16) mg/dL Creatinine 0.79 (0.5-1.4) mg/dL Estim Creat Clear Calc 111.1 Estimated GFR > 60 Random Glucose 84 (60-115) mg/dL Calcium 8.7 (8.4-10.2) mg/dL Total Bilirubin 0.3 (0.0-1.0) mg/dL AST 30 (5-37) U/L ALT 13 (0-40) U/L Alkaline Phosphatase 71 (39-117) U/L Total Protein 7.1 (6.5-8.0) g/dL Albumin 4.1 (3.5-5.0) g/dL Lipase 21 (8-78) U/L Urine Color Yellow Urine Appearance Clear Urine pH 5.5 (5.0-9.0) Ur Specific [place] >= 1.030 H (1.005-1.025) Urine Protein Trace (Neg-Trace) mg/dL Urine Glucose (UA) Negative (Negative) mg/dL Urine Ketones Trace (Negative) mg/dL Urine Blood Negative (Negative) Urine Nitrite Negative (Negative) Ur Leukocyte Esterase Negative (Negative) Discharge Plan Discharge Clinical Impression: Gastroenteritis Patient Disposition: Home, Self-Care Instructions: Gastroenteritis (ED) Additional Instructions: All of your screening labs were normal. The CT scan was negative for acute infection. You have viral gastroenteritis. Such illness has been circulating within the community. It was self-limiting. Uses Zofran as needed for nausea, use the dicyclomine as needed for diarrhea and abdominal cramping/pain. Follow up with the primary care provider as needed. Prescriptions: New dicyclomine 20 mg tablet 20 mg PO TID PRN (Reason: abdominal pain) Qty: 10 0RF ondansetron HCl 4 mg tablet 4 mg PO Q8H PRN (Reason: nausea and vomiting) Qty: 10 0RF Print Language: Peruvian
[2024-09-03 00:54] VITALS: BP 109/55; PULSE 81; RESP 16; TEMP 36.4; O2SAT 97
[2024-09-03] MEDS: Dicyclomine HCl 10 MG CAPSULE 20 MG PO (00:56)
[2024-09-03 01:12] VITALS: BP 109/55; PULSE 81; RESP 16; TEMP 36.4; O2SAT 97
== END 2024-09-03 01:13 | disposition home or self-care (01) ==
PROVIDERS: Emergency Provider Emergency Medicine
DX: K52.9 Noninfective gastroenteritis and colitis, unspecified (principal); R11.2 Nausea with vomiting, unspecified
CPT/HCPCS: 36415; 74177; 80053; 81003; 83690; 85025; 96361; 96374; 96375; 99284; J1885; J2405; Q9967

== ENCOUNTER → 2024-09-02 23:27 | Outpatient (BNV) | payer MEDICAID, SELFPAY | PROVIDERS: Emergency Provider Emergency Medicine; Visit Provider Specialist | DX: R10.9 Unspecified abdominal pain (principal) | CPT/HCPCS: 74177 ==

== ENCOUNTER 2025-05-20 14:16 | Outpatient (REF) | payer OTHER, SELFPAY ==
[2025-05-20 15:49] LABS: MANUAL DIFF FLAG NO
[2025-05-20 17:17] LABS: Hematocrit 46.2 % (42.0-52.0); Hemoglobin 15.1 g/dl (14.0-18.0); Imm Gran Abs Auto 0.04 X10*3/uL (0.00-0.03); Imm Gran Pct Auto 0.4 % (0.0-0.4); Lymphocytes Absolute Auto 2.4 X10*3/uL (1.2-4.9); Mean Corpuscular HGB Conc 32.7 g/dl (31.0-36.0); Mean Corpuscular Hemoglobin 31.4 pg (27.0-33.0); Mean Corpuscular Volume 96.0 fL (80.0-98.0); NRBC Abs Auto 0.000 X10*3/uL (0.0-0.012); NRBC Pct Auto 0.0 /100WBC (0.0-0.2); Platelet Count 260 X10*3/uL (160-400); Red Blood Count 4.81 X10*6/uL (4.60-5.80); White Blood Count 10.4 X10*3/uL (4.8-10.8)
[2025-05-20 18:01] LABS: Alanine Aminotransferase 35 U/L (0-40); Albumin Level 4.9 g/dL (3.5-5.0); Alkaline Phosphatase 86 U/L (39-117); Anion Gap 15 (12-20); Aspartate Amino Transferase 17 U/L (5-37); Blood Urea Nitrogen 18 mg/dL (9-16); Calcium 9.1 mg/dL (8.4-10.2); Carbon Dioxide 28 mmol/L (22-29); Chloride 103 mmol/L (96-108); Cholesterol 180 mg/dL (<200); Estimated Glomerular Filt Rate > 60; HDL Cholesterol 42 mg/dL (>40); Potassium 3.3 mmol/L (3.3-5.1); Sodium 143 mmol/L (135-145); Total Protein 8.3 g/dL (6.5-8.0); Triglycerides 264 mg/dL (<150)
[2025-05-20 18:50] LABS: Appearance Urine Clear; Glucose Urine UA Negative (Negative); PH 6.0 (5.0-9.0); Specific Gravity - Urine 1.025 (1.005-1.025)
[2025-05-20 18:51] LABS: Microalbum/Creatinine Ratio Ur 5.4 ug/mg cr (<30)
[2025-05-20 23:05] LABS: CT PCR Urine NOT DETECTED (Not Detect.); NG PCR Urine NOT DETECTED (Not Detect.)
[2025-05-21 03:47] LABS: Syphilis Screen Nonreactive (Nonreactive)
[2025-05-21 04:00] LABS: HBc Num1 0.11 S/CO (0.00-0.79); HBsAGNum1 0.33 S/CO (0.00-0.99); HIV Num 1 0.10 S/CO (0.00-0.99); Hepatitis A Antibody IgM 0.13 Index (0-0.79); Hepatitis B Surface Antigen Negative (Negative); ~HepC Num1 0.08 S/CO (0.00-0.79); ~Hepatitis A Antibody IgM Nonreactive (Nonreactive); ~Hepatitis B Surface Antibody REACTIVE (Nonreactive); ~Hepatitis C Antibody Nonreactive (Nonreactive)
[2025-05-26 14:58] LABS: Testosterone, Free 69.0 pg/mL (35.0-155.0)
[2025-05-27 14:09] LABS: Anti Nuclear Antibody Screen POSITIVE (NEGATIVE); Anti Nuclear Antibody Titer 1:40 titer
== END 2025-05-20 14:17 | disposition home or self-care (01) ==
LOC: HO.LAB 14:16
PROVIDERS: PCP Student in an Organized Health Care Education/Training Program; Visit Provider Student in an Organized Health Care Education/Training Program
DX: Z00.00 Encounter for general adult medical examination without abnormal findings (principal); M35.9 Systemic involvement of connective tissue, unspecified; R30.0 Dysuria; R19.7 Diarrhea, unspecified; L70.9 Acne, unspecified; R53.83 Other fatigue; F32.A Depression, unspecified; R10.84 Generalized abdominal pain; R19.4 Change in bowel habit; F41.9 Anxiety disorder, unspecified; R21 Rash and other nonspecific skin eruption; N50.89 Other specified disorders of the male genital organs; N52.1 Erectile dysfunction due to diseases classified elsewhere; Z63.4 Disappearance and death of family member
CPT/HCPCS: 80053; 80061; 81003; 82043; 82306; 82570; 83036; 84402; 84403; 84443; 85025; 85652; 86038; 86039; 86141; 86160; 86704; 86706; 86709; 86780; 86803; 87340; 87389; 87491; 87591; 96127; 99202

== ENCOUNTER 2025-05-20 14:16 | Outpatient (AMB) | payer OTHER, SELFPAY ==
--- NOTE | 2025-05-20 14:26 | A.OFFPC_ITS ---
Vital Signs 05/20/25 14:31 Height 5 ft 5 in Weight 140 lb BMI 23.3 BP 128/68 Blood Pressure Location Lt brachial Position Sitting Respiration 18 Pulse 72 Pulse Source Monitor Temp 98.2 F Temp Source Temporal Artery Scan Pulse Oximetry (%) 99 Oxygen Delivery Method Room Air Intake Visit Reasons: New Patient Music [employer]ession[employer] Required: No Allergies No Known Allergies Allergy (Verified 05/20/25 14:29) Medication List - Last Reconciled 05/20/25 by Dolores Simmons LPN HPI HPI Comments History of Present Illness Details History of Present Illness The patient is a 40-year-old male presenting for a new patient physical examination. He has a history of a colon polyp found on colonoscopy in 2015 or 2016, which prompted early screening due to a family history of colon cancer in his grandmother. A follow-up colonoscopy in March 2023 was reportedly clear. He complains of midline abdominal pain that can radiate to his back, which occurs after eating any type of food and is relieved by lying down and holding a pillow tightly. He also experiences intermittent diarrhea lasting 4-5 days, occasional constipation, and rectal bleeding on wiping, which has been attributed to hemorrhoids. He reports acne on his face that has been spreading and is associated with a burning sensation upon sun exposure. He previously received treatment from a facial performance management consultant, including pills and face masks, which provided temporary relief before the condition returned and worsened. He also describes intermittent vesicular lesions on his penile shaft that come and go, with the last notable episode occurring 2-3 months ago. He has been feeling more tired and reports significant stress and depression since his stepfather in 2022. He feels overwhelmed by his responsibilities as a primary caregiver for his mother and uncle. He also reports erectile dysfunction, which he attributes to his current stress levels. He has a past history of an episode of severe testicular pain for which he was evaluated in the emergency room. He denies any history of smoking, alcohol consumption, or illicit drug use. Medical History: - History of colon polyp, discovered in 7581-3073 - Hemorrhoids - History of testicular pain, evaluated in the emergency room - Depression and anxiety, exacerbated si nce his stepfather's Surgical History: - Eye surgery as a child - Colonoscopy with polypectomy (2015 or 2016) - Colonoscopy (March 2023) Medications: - The patient is not on any current medi cations. Family History: - Paternal grandmother with colon cancer - Diabetes in paternal grandmother and o ther family members - Paternal grandfather with heart failur e - History of heart disease and cancer in other family members Diagnostic Results: - Colonoscopy (3511-7121): Revealed a co venkata polyp. - Colonoscopy (March 2023): No abnorm alities found. Social History - Tobacco Use: Denies smoking. - Alcohol Use: Denies alcohol use, inclu ding socially. - Substance Use: Denies illicit drug use . - Stressors: Reports significant stress related to being the primary caregiver for his mother and uncle following the of his stepfather in 2022. - He is also dealing with a stressful [facility] custody aguila. - Social Support: He identifies his girl friend and his mother as his primary sources of support. [facility] Medical History (Updated 05/20/25 @ 15:24 by Maximo Parham MD) Annual physical exam Erectile dysfunction Male genital lesion Facial rash Altered bowel habits Anxiety and depression Abdominal pain Dysuria Questionnaire PHQ-9 Over the last 2 weeks, how often have you been bothered by any of the following problems? 1. Little interest or pleasure in doing things: not at all 2. Feeling down, depressed, or hopeless: not at all 3. Trouble falling or staying asleep, or sleeping too much: nearly every day 4. Feeling tired or having little energy: nearly every day 5. Poor appetite or overeating: nearly every day 6. Feeling bad about yourself - or that you are a failure or have let yourself or your family down: more than half the days 7. Trouble concentrating on things, such as reading the newspaper or watching television: not at all 8. Moving or speaking so slowly that other people could have noticed. Or the opposite - being so fidgety or restless that you have been moving around a lot more than usual: several days 9. Thoughts that you would be better off or of hurting yourself in some way: not at all Total score: 12 Depression Screening Interpretation: Positive Depression Screening Done: Yes 60869 - PHQ-9 Billing: Yes Source: Developed by Drs. Ramses Ovalle, Sangita Simmons, Ebenezer Bower and colleagues, with an educational he from [employer]. Thrive Questionnaire Date Thrive assessed: 05/20/25 I am a: Patient What is your living situation today?: I have a steady place to live Within the past 12 months, did the food you bought not last and you didn't have the money to get more?: Never true Within the past 12 months, did you worry whether your food would run out before you got money to buy more?: Never true Do you have trouble paying for medicines?: No Do you have trouble getting transportation to medical appointments?: No Do you have trouble paying your heating and electricity bill?: No Do you have trouble taking care of your child, family member or friend?: No Do you have trouble with day-to-day activities such as bathing, preparing meals, shopping, managing finances, etc.?: No Are you currently unemployed and looking for a job?: No Are you interested in more education?: No THRIVE Score: 0 AUDIT C Alcohol Use Questionnaire (AUDIT-C) 1. How often do you have a drink containing alcohol?: Never 3. How often do you have six or more drinks on one occasion?: Never Total Score: 0 Score Reviewed/Action Taken: Yes TEJ-7 AMB Questionnaire TEJ-7 Date TEJ - 7 assessed: 05/20/25 Feeling nervous, anxious, or on edge: 1 = Several days Not being able to stop or control worryin = Nearly every day Worrying too much about different things: 3 = Nearly every day Trouble relaxin = Nearly every day Being so restless that it is hard to sit still: 0 = Not at all Becoming easily annoyed or irritable: 0 = Not at all Feeling afraid as if something awful might happen: 0 = Not at all Total TEJ-7 score (0-4 normal; 5-9 mild; 10-14 moderate; 15-21 severe): 10 Source: Developed by Drs. Ramses Ovalle, Sangita Simmons, Ebenezer Bower and colleagues, with an educational he from [employer]. TEJ-7 Assessment Billing TEJ-7 Assessment Tool: TEJ-7 Assessment 07634 Review of Systems Narrative Review of Systems - Constitutional: Reports increased tiredness. - Eyes: History of an eye surgery as a child. - Gastrointestinal: Reports postprandial midline abdominal pain radiating to the back, intermittent diarrhea for 4-5 days, occasional constipation, rectal bleeding on wiping, and a history of hemorrhoids. - Genitourinary: Reports occasional dysuria, intermittent vesicular lesions on the penile shaft, a history of an episode of severe testicular pain, and erectile dysfunction. - Integumentary: Reports acne on his face that is spreading and licea with sun exposure. - Psychiatric: Reports feeling stressed, depressed, and anxious; experiences difficulty relaxing and worries excessively. - Neurological: Reports a history of a syncopal episode. All systems reviewed & are unremarkable except as reviewed in HPI and above Physical exam (Primary Care) Vital Signs: Last Vital Signs Temp 98.2 F 05/20/25 14:31 Pulse 72 05/20/25 14:31 Resp 18 05/20/25 14:31 BP 128/68 05/20/25 14:31 Pulse Ox 99 05/20/25 14:31 Oxygen Delivery Method Room Air 05/20/25 14:31 BMI result Body Mass Index 23.3 Depression Screening Interpretation: Positive Narrative Physical Exam General: Alert and oriented, Well nourished, No acute distress. Eye: Pupils are equal, round and reactive to light, Intact accommodation, Extraocular movements are intact, Normal conjunctiva, Vision unchanged. HENT: Normocephalic, Atraumatic, Tympanic membranes are clear, Normal hearing, Oral mucosa is moist, No pharyngeal erythema, Ear canals patent. Respiratory: Lungs CTA bilaterally, No wheeze, Respirations are non-labored. Cardiovascular: Regular rate, Regular rhythm, S1 auscultated, S2 auscultated, No murmur, Good pulses equal in all extremities, Normal peripheral perfusion, No edema. Gastrointestinal: Soft, Tender in the middle of the abdomen, Non-distended, Normal bowel sounds, No organomegaly. Musculoskeletal: Normal range of motion, Normal strength, No tenderness, No swelling, No deformity, Normal gait. Integumentary: Warm, Dry, [place], Intact, Acne on face, Possible butterfly rash. Neurologic: Alert, Oriented, Normal sensory, Normal motor function, No focal defects, Cranial Nerves II-XII are grossly intact, Normal deep tendon reflexes. Psychiatric: Cooperative, Appropriate mood & affect, Normal judgment, Moderate depression and severe anxiety noted. Coding Level of Care Code New Pt Level 5 (33922) New Pt Prev Care 40-64y(21852) Diagnoses Generalized abdominal pain R10.84 Abdominal location: generalized Altered bowel habits R19.4 Anxiety and depression F41.9; F32.A Facial rash R21 Male genital lesion N50.89 Erectile dysfunction due to diseases classified elsewhere N52.1 Erectile dysfunction type: due to other secondary cause Annual physical exam Z00.00 Additional Codes PHQ-9 - 02759 - PHQ-9 Billing: Yes ([id number]) TEJ-7 Assessment Billing - TEJ-7 Assessment Tool: TEJ-7 Assessment 60720 ([id number]) Time Spent (min) 45 Comment 24037-79 Assessment & Plan Assessment & Plan (1) Abdominal pain: Comment: - The patient's symptoms of postprandial pain are concerning for an ulcer or other acid-related pathology. - Plan to start pantoprazole daily to suppress acid secretion. - A GI consultation will be placed. - The patient is advised to obtain his prior colonoscopy records. Code(s): R10.9 - Unspecified abdominal pain Category: Medical Qualifiers: Abdominal location: generalized Qualified Code(s): R10.84 - Generalized abdominal pain (2) Altered bowel habits: Comment: - The patient reports intermittent diarrhea and constipation, with bleeding on wiping consistent with hemorrhoids. - Plan to start daily MiraLax to promote regular bowel movements. - Advised on gentle hygiene practices. Code(s): R19.4 - Change in bowel habit Category: Medical (3) Anxiety and depression: Comment: - The patient scores 14 on the PHQ-9 and 13 on the TEJ-7, meeting criteria for moderate depression and severe anxiety, which appear to be significantly impacting his quality of life and contributing to physical symptoms. - The symptoms are exacerbated by significant psychosocial stressors. - Plan to start Zoloft daily. - A referral to psychiatry will be placed for therapy and further management. Code(s): F41.9 - Anxiety disorder, unspecified; F32.A - Depression, unspecified Category: Medical (4) Facial rash: Comment: - The patient has a malar-like butterfly rash that worsens with sun exposure. - An autoimmune panel, including IFTIKHAR, will be ordered to screen for lupus. - If positive, a referral to rheumatology will be made. - The patient is advised to try an OTC acne face wash. Code(s): R21 - Rash and other nonspecific skin eruption Category: Medical (5) Male genital lesion: Comment: - The patient describes intermittent vesicular lesions on his shaft. - A therapeutic trial of valacyclovir 1g twice daily for 10 days will be prescribed to treat a suspected herpes infection. Code(s): N50.89 - Other specified disorders of the male genital organs Category: Medical (6) Erectile dysfunction: Comment: - This is likely secondary to his significant depression, anxiety, and stress. - While medication can be prescribed, the primary plan is to address the underlying mood disorder Code(s): N52.9 - Male erectile dysfunction, unspecified Category: Medical Qualifiers: Erectile dysfunction type: due to other secondary cause Qualified Code(s): N52.1 - Erectile dysfunction due to diseases classified elsewhere (7) Annual physical exam: Comment: - As this is a new patient visit, comprehensive lab work will be performed, including CBC, CMP, lipid panel, A1c, thyroid function, vitamin D, HIV, hepatiti s panel, and syphilis screening. - A urinalysis will also be done. - He will follow up in six weeks to review results and progress. Code(s): Z00.00 - Encounter for general adult medical examination without abnormal findings Category: Medical Plan: Health Maintenance: - Colon Cancer Screening: The patient had a clear colonoscopy in March 2023. He was advised to obtain these records to determine the appropriate follow-up interval, especially given his family history and personal history of a polyp. - Laboratory Screening: Ordered comprehensive blood work including a complete blood count, complete metabolic panel, lipid panel, HIV and syphilis screening, hepatitis panel, thyroid function tests, vitamin D level, and an autoimmune panel. - A urinalysis was also ordered. - Healthy Lifestyle: Discussed the importance of a healthy diet, exercise, and stress management, encouraging the patient to engage in activities he enjoys, such as going to the gym, to improve his mental and physical well-being. Patient was informed and verbally consented to the use of an ambient scribe for clinic note documentation during this visit. Vital signs reviewed. Comprehensive history, review of systems, and physical exam completed. Medications, allergies, and problem list reviewed and updated. Counseling provided on nutrition, regular exercise, sleep hygiene, and moderation of alcohol use. Discussed age-appropriate screenings (mammogram, colonoscopy, Pap, bone density) and immunizations (flu, COVID, shingles, Tdap). Screened for depression, fall risk, and home safety; no current concerns. Discussed stress management, dental and vision care, and importance of ongoing preventive follow-up. Routine labs ordered for metabolic and lipid screening. Patient educated on healthy lifestyle and agrees with the plan. Plan I had an extensive discussion with the patient regarding his multiple presenting complaints during this new patient visit. I explained that his abdominal pain could be due to several causes, including an ulcer or gastroparesis, and started him on pantoprazole for acid suppression while awaiting a GI consultation. I addressed his facial rash, noting its appearance is suspicious for lupus, and explained the rationale for ordering an autoimmune panel. I also discussed that his recurrent genital lesions are likely herpetic and prescribed a trial of valacyclovir. A significant portion of our conversation focused on his mental health. Based on screening questionnaires, he meets the criteria for moderate depression and severe anxiety, which are likely exacerbated by his significant life stressors. I emphasized that many of his physical symptoms could be manifestations of his psychological distress and stressed the importance of addressing his mood. I prescribed Zoloft and will refer him to psychiatry. I strongly advised the patient that he must take responsibility for his own health and prioritize his well-being. I outlined the entire plan, including medications, lab work, and referrals, and scheduled a follow-up in six weeks to review his progress. He was receptive and agreed to the plan. Orders: Orders Complete Blood Count Auto Diff Today Z00.00 - Encounter for general adult medical examination without abnormal findings UA CC w/rflx Micro + Cult Today R30.0 - Dysuria CRP High Sensitivity Today M35.9 - Systemic involvement of connective tissue, unspecified Erythrocyte Sedimentation Rate Today M35.9 - Systemic involvement of connective tissue, unspecified IFTIKHAR Reflex Titer and Pattern Today M35.9 - Systemic involvement of connective tissue, unspecified Complement C3 Today M35.9 - Systemic involvement of connective tissue, unspecified CT NG by PCR Urine Today R30.0 - Dysuria Comprehensive Met. Panel Today Z00.00 - Encounter for general adult medical examination without abnormal findings Hemoglobin A1c Today Z00.00 - Encounter for general adult medical examination without abnormal findings Hepatitis A,B,C Profile Today Z00.00 - Encounter for general adult medical examination without abnormal findings HIV Ab/Ag Today Z00.00 - Encounter for general adult medical examination without abnormal findings Lipid Panel Today Z00.00 - Encounter for general adult medical examination without abnormal findings Microalbumin, Random (w Creat) Today Z00.00 - Encounter for general adult medical examination without abnormal findings Syphilis Screen Today Z00.00 - Encounter for general adult medical examination without abnormal findings TSH reflex Free T4 Today Z00.00 - Encounter for general adult medical examination without abnormal findings Vitamin D 25-OH Total Today Z00.00 - Encounter for general adult medical examination without abnormal findings Complement C4 Today M35.9 - Systemic involvement of connective tissue, unspecified Testosterone, Free/Total Today Z00.00 - Encounter for general adult medical examination without abnormal findings Referrals Gastroenterology Referral R10.9 - Unspecified abdominal pain Psychiatry Referral F32.A - Depression, unspecified, F41.9 - Anxiety disorder, unspecified Medications: New valacyclovir 1,000 mg PO BID 20 tabs 0RF 10 days sertraline 50 mg PO DAILY 90 tabs 0RF pantoprazole 40 mg PO QAM 90 tabs 0RF polyethylene glycol 3350 (Miralax) 17 grams PO DAILY 510 grams 2RF sildenafil administer 30 minutes to 4 hours before activity 25 mg PO DAILY PRN 7 tabs 0RF sexual activity Patient Instructions: - Go to the lab to have your blood drawn and to provide a urine sample. - Take one pantoprazole tablet every morning before you eat to help with stomach acid. - Take Zoloft every day for your mood and anxiety. You can take this at night if you prefer. - Start taking wezo-vof-sajyply MiraLax every day to help make your bowel movements more regular. - Take the prescribed valacyclovir (1 gram twice a day for 10 days) to treat the sores on your private area. - Use an bnbj-wsu-yhafekl acne face wash for your facial rash. - Pay attention to the foods you eat and try to avoid any that make your stomach pain worse. - Request your medical records from your previous colonoscopies and bring them to your next appointment. - You will be contacted by a stomach specialist (GI) and a psychiatrist to schedule appointments. - Schedule a follow-up appointment to see me in six weeks. - If you experience another episode of severe testicular pain, go to the emergency room immediately. - It is very important to focus on your own health. Try to make time for yourself and do things you enjoy, such as going to the gym.
[2025-05-20 14:31] VITALS: BP 128/68; PULSE 72; RESP 18; TEMP 36.8; O2SAT 99; BMI 23.3
--- OUTSIDE RECORDS SUMMARY | 2025-05-20 17:45 | XMS_ITS | Encounter Summary ---
Author Organization [facility] Address [address] [place] [address] Care Team Providers Care Transport Coordinator Name Role Phone Matthew Wyatt MD Primary Care Provider [phone] Matthew Wyatt MD Unavailable [phone] Lisa Velásquez LCSW Unavailable [phone] Emilie Carrera Unavailable Rosalinda Baez MD Primary Care Provider [phone] Rosalinda Baez MD Unavailable Ramandeep Espinal PA-C Primary Care Provider [phone] Encounter Details Date Type Department Care Team (Late st Contact Info) Description 08/16/2017 Scanned Document [address] [phone] Provider, Generic Social History Tobacco Use Types Packs/Day Years Used Date Smoking Tobacco: Never Alcohol Use Standard Drinks/Week Comments No 0 (1 standard drink = 0.6 oz pur e alcohol) Sex and Gender Information Value Date Recorded Sex Assigned at Male 05/21/2024 8:18 PM EST Legal Sex Male 4:27 PM EDT Gender Identity Male 01/17/2023 11:55 AM EDT Sexual Orientation Heterosexual (straight) 05/21 8:18 PM EST documented as of this encounter Plan of Treatment Not on file documented as of this encounter Procedures Procedure Name Priority Date/Time Associated Diagnosis Comments HX GASTROENTEROLOGY COLONOSCOPY-SCAN 08/16/2017 documented in this encounter Results * HX GASTROENTEROLOGY COLONOSCOPY-SCAN (08/16/2017) Narrative 08/16/2017 Ordered by an unspecified provider. us Generic Provider HX AMB PROCEDURES Edited Result - Final documented in this encounter Visit Diagnoses Not on filedocumented in this encounter Care Teams Transport Coordinator Relationship Specialty Start Date End Date Matthew Wyatt MD PCP - General Family Medicine 04/02/16 03/10/22 Matthew Wyatt MD [address] [place] [address] PCP - PCMH+ Attributed 05/30/19 2 Rosalinda Baez MD [address] [place] [id number] PCP - General Family Medicine 03/11/22 01/16/23 Rosalinda Baez MD [address] [address] PCP - PCMH+ Attributed 02/27/22 Ramandeep Espinal PA-C [address] [address] PCP - General Adult Health - PA/APNP/SOCIAL INSURANCE SPECIALIST/UPPER MARKER 01/17/23 Lisa Velásquez, HYPERBARIC TECHNICIAN [address] [place] [address] ICP PCMH+ Director Clinical Information Services 01/10/18 06/24/19 Emilie Carrera [address] [place] [address] ICP Letter Sorting Machine Operator 04/18/2010/12 documented as of this encounter
--- OUTSIDE RECORDS SUMMARY | 2025-05-20 17:45 | XMS_ITS | Encounter Summary ---
Author Organization [facility] Address [address] [place] [address] Care Team Providers Care Field Artillery Crewmember Name Role Phone Matthew Wyatt MD Primary Care Provider [phone] Matthew Wyatt MD Unavailable [phone] Lisa Velásquez LCSW Unavailable [phone] Emilie Carrera Unavailable Rosalinda Baez MD Primary Care Provider [phone] Rosalinda Baez MD Unavailable Ramandeep Espinal PA-C Primary Care Provider [phone] Encounter Details Date Type Department Care Team (Late st Contact Info) Description 08/06/2017 Scanned Document [address] [phone] Provider, Generic Social History Tobacco Use Types [...] on filedocumented in this encounter Care Teams Field Artillery Crewmember Relationship Specialty Start Date End Date Matthew Wyatt MD PCP - General Family Medicine 04/02/16 03/10/22 Matthew Wyatt MD [address] [place] [address] [place] [address] PCP - PCMH+ Attributed 05/30/19 2 Rosalinda Baez MD [address] [address] PCP - General Family Medicine 03/11/22 01/16/23 Rosalinda Baez MD [address] [address] PCP - PCMH+ Attributed 02/27/22 Ramandeep Espinal PA-C [address] [address] PCP - General Adult Health - PA/APNP/POLE LIFT OPERATOR/MARRIAGE COUNSELOR 01/17/23 Lisa Velásquez, 3D SPECIALIST [address] [place] [address] ICP PCMH+ Radiographer Technologist 01/10/18 06/24/19 Emilie Carrera [address] [address] ICP Automotive Painter Helper 04/18/2010/12 documented as of this encounter
--- OUTSIDE RECORDS SUMMARY | 2025-05-20 17:45 | XMS_ITS | Clinical Summary ---
Author Organization [facility]ly [facility] Address [address] [place] [address] Care Team Providers Care Electronic Test Technician Name Role Phone Ramandeep Espinal PA-C Primary Care Provider [phone] Allergies No known active allergies Medications * This document contains information received from the source organization and may not represent a complete record from that organization. multivitamin with minerals (PRESERVISION AREDS 2) capsuleIndicatio ns:Vitamin D deficiency Take 1 capsule by mouth daily. 90 capsule 5 1 Active tretinoin (RETIN-A) 0.025 % creamIndications :Acne, unspecified acne type Apply topically nightly. 90 g 3 2 Active clindamycin-sharif oyl peroxide (BENZACLIN) 1-5 % external gelIndications:A cne, unspecified acne type Apply topically 2 (two) times a day. Dispense Pump Gel 35 g. 150 g 3 2 Active sildenafil (VIAGRA) 50 MG tabletIndication s:Erectile dysfunction, unspecified erectile dysfunction type Take 1 tablet (50 mg total) by mouth daily as needed for erectile dysfunction. 30 tablet 3 2 Active cyanocobalamin (VITAMIN B-12) 500 MCG tabletIndication s:B12 deficiency Take 1 tablet (500 mcg total) by mouth daily. 90 tablet 3 2 Active naproxen (NAPROSYN) 500 MG tablet Take 1 tablet (500 mg total) by mouth 2 (two) times a day as needed for mild pain (pain). Take with food 14 tablet 2 Active hydrOXYzine HCl (ATARAX) 50 MG tabletIndication s:Recurrent major depressive disorder, in remission Take 1 tablet (50 mg total) by mouth 4 times daily (every 6 hours) as needed for anxiety. 120 tablet 2 Active doxycycline (MONODOX) 100 MG capsuleIndicatio ns:Exposure to chlamydia Take 1 capsule (100 mg total) by mouth 2 (two) times a day. 14 capsule 2 Active meloxicam (MOBIC) 15 MG tabletIndication s:Acute left-sided low back pain without sciatica Take 1 tablet (15 mg total) by mouth daily. 30 tablet 1 3 Active OMEprazole (PriLOSEC) 40 MG capsuleIndicatio ns:Gastroesophag eal reflux disease, unspecified whether esophagitis present TAKE 1 CAPSULE BY MOUTH EVERY DAY IN THE MORNING BEFORE BREAKFAST 90 capsule 4 Active Active Problems Problem Noted Date Diagnosed Date Diarrhea 03/31/2023 Gastroesophageal reflux disease 03/31/2023 History of colon polyps 03/31/2023 Weight loss 03/31/2023 Rectal bleeding 03/31/2023 Epigastric pain 03/31/2023 Possible exposure to STD 06/28/2022 Assessment & Plan (06/28/2022 9:13 AM EST): Labs obtained. UA obtained at [facility]-unremarkable. Will hold on empirical treatment at this time for G/C. Encouraged condom use. Right elbow pain 01/28/2021 Low back pain 01/28/2020 Assessment & Plan (06/28/2022 9:09 AM EST): Unremarkable PE XR obtained at [facility] also unremarkable per chart review No [...] and problem-solving skills. Discussed safety plan/ Immunizations Immunization Administration Dates Next Due Covid-19 MRNA Primary [...] 78 05/21/2024 7:28 PM EST Temperature 36.7 C (98 F) 05/21/2024 7:28 PM EST Respiratory Rate 16 [...] - 19+ 3-dose series) 02/01/2003 Influenza Vaccine 12/28/2024 04/03/2019, , 03/07/2017, Additional history exists COVID-19 Vaccine ( season) 2025 10/08/2021, 01/16/2021, 12/26/2020 DTaP/Tdap/Td Vaccines (2 - Td or Tdap) 03/07/2027 03/07/2017 Hepatitis C Virus Screening Completed 02/27, 10/08/2021, 04/03/2019 HIV Screening Completed 05/21/2024, 06/01, 03/11/2022, Additional history exists HPV Vaccines (No Doses Required) Completed Pneumococcal Vaccine: Pediatric (0-5 Years) and At-Risk [...] CMIA Nonreactive Nonreactive 05/22/2024 11:10 AM EST [facility] Comment: Results show [...] PM EST Pilar Estrada DO LAB BLOOD ORDERABLES Final Result [facility] [address] [place] [address], * Hepatitis C Antibody (03/11/2022 11:10 AM EDT) Hepatitis C Antibody NON-REACT BECCA NON-REACT BECCA [facility] Hepatitis C Antibody (s/co) 0.10 <1.00 [facility] Comment: HCV antibody was non-reactive. There is no laboratory evidence of HCV infection. In most cases, no further action is required. However, if recent HCV exposure is suspected, a test for HCV RNA (test code 83243) is suggested. For additional information please refer to http://education.Vocation/faq/KYI60i0 (This link is being provided for informational/ educational purposes only.) Blood specimen (specimen) Blood specimen / Unknown 03/11/2022 11:10 AM EDT 03/11/2022 11:10 AM EDT Luciana HAN LAB BLOOD ORDERABLES Final Res ult [facility] [address] [place] [address], [place] [address] from Last 3 Months or Most Recently Relevant to Health Maintenance Insurance [facility] [facility] [employer] Care Teams Electronic Test Technician Relationship Specialty Start Date End Date Ramandeep Espinal PA-C PCP - General Adult Health - PA/APNP/DENTAL TREATMENT COORDINATOR/NEUROSCIENTIST 01/17/23
--- OUTSIDE RECORDS SUMMARY | 2025-05-20 17:45 | XMS_ITS | Encounter Summary ---
Author Organization [facility] Address [address] [place] [address] Care Team Providers Care Line Locator Name Role Phone Ramandeep Espinal PA-C Primary Care Provider [phone] Encounter Details Date Type Department Care Team (Late st Contact Info) Description 04/12/2023 Scanned Document [facility] [address] [facility] [place] [address] Checo Wu MD [address] [facility] [address] [place], [place] [address] Social History Tobacco Use Types Packs/Day Years [...] (04/12/2023 12:00 AM EST) Checo Wu MD PATHOLOGY/CYTOLOGY ORDER SINCERE Final Result documented in this encounter Visit Diagnoses Not on filedocumented in this encounter Care Teams Line Locator Relationship Specialty Start Date End Date Ramandeep Espinal PA-C PCP - General Adult Health - PA/APNP/OCEANIC SCIENCES PROFESSOR/FREIGHT BRAKE OPERATOR 01/17/23 documented as of this encounter
--- OUTSIDE RECORDS SUMMARY | 2025-05-20 17:45 | XMS_ITS | Encounter Summary ---
Author Organization [facility] Address [address] [place] [address] Care Team Providers Care Corporate Legal Intern Name Role Phone Matthew Wyatt MD Primary Care Provider [phone] Matthew Wyatt MD Unavailable [phone] Lisa Velásquez LCSW Unavailable [phone] Emilie Carrera Unavailable Rosalinda Baez MD Primary Care Provider [phone] Rosalinda Baez MD Unavailable Ramandeep Espinal PA-C Primary Care Provider [phone] Encounter Details Date Type Department Care Team (Late st Contact Info) Description 08/16/2017 Scanned Document [address] [phone] Provider, Generic Social History Tobacco Use Types [...] unspecified provider. Generic Provider HX AMB PROCEDURES Edited Result - Final documented in this encounter Visit Diagnoses Not on filedocumented in this encounter Care Teams Corporate Legal Intern Relationship Specialty Start Date End Date Matthew Wyatt MD PCP - General Family Medicine 04/02/16 03/10/22 Matthew Wyatt MD [address] [place] [address] PCP - PCMH+ Attributed 05/30/19 2 Rosalinda Baez MD [address] [place] [address] PCP - General Family Medicine 03/11/22 01/16/23 Rosalinda Baez MD [address] [address] PCP - PCMH+ Attributed 02/27/22 Ramandeep Espinal PA-C [address] [address] PCP - General Adult Health - PA/APNP/NURSE TECHNICIAN/AIR OPERATIONS MANAGER 01/17/23 Lisa Velásquez, COMPANION CAREGIVER [address] [place] [address] ICP PCMH+ Copier Field Service Technician 01/10/18 06/24/19 Emilie Carrera [address] [place] [address] ICP Statue Maker 04/18/2010/12 documented as of this encounter
--- OUTSIDE RECORDS SUMMARY | 2025-05-20 17:45 | XMS_ITS | Encounter Summary ---
Author Organization [facility] Address [address] [place] [address] Care Team Providers Care Credit Or Loans Officer Name Role Phone Matthew Wyatt MD Primary Care Provider [phone] Matthew Wyatt MD Unavailable [phone] Lisa Velásquez LCSW Unavailable [phone] Emilie Carrera Unavailable Rosalinda Baez MD Primary Care Provider [phone] Rosalinda Baez MD Unavailable Ramandeep Espinal PA-C Primary Care Provider [phone] Encounter Details Date Type Department Care Team (Late st Contact Info) Description 08/16/2017 Scanned Document [address] [phone] Provider, Generic Social History Tobacco Use Types [...] on filedocumented in this encounter Care Teams Credit Or Loans Officer Relationship Specialty Start Date End Date Matthew Wyatt MD PCP - General Family Medicine 04/02/16 03/10/22 Matthew Wyatt MD [address] [place] [address] PCP - PCMH+ Attributed 05/30/19 2 Rosalinda Baez MD [address] [place] [address] PCP - General Family Medicine 03/11/22 01/16/23 Rosalinda Baez MD [address] [address] PCP - PCMH+ Attributed 02/27/22 Ramandeep Espinal PA-C [address] [address] PCP - General Adult Health - PA/APNP/CROSSCUTTER ROLLED GLASS/AUTOMOTIVE METALSMITH 01/17/23 Lisa Velásquez, SET AND EXHIBIT DESIGNER [address] [place] [address] ICP PCMH+ Blower Operator 01/10/18 06/24/19 Emilie Carrera [address] [place] [address] ICP Inspector Repairer 04/18/2010/12 documented as of this encounter
--- OUTSIDE RECORDS SUMMARY | 2025-05-20 17:45 | XMS_ITS | Encounter Summary ---
Author Organization [facility] Address [address] [place] [address] Care Team Providers Care Squirrel Worker Name Role Phone Matthew Wyatt MD Primary Care Provider [phone] Matthew Wyatt MD Unavailable [phone] Lisa Velásquez LCSW Unavailable [phone] Emilie Carrera Unavailable Rosalinda Baez MD Primary Care Provider [phone] Rosalinda Baez MD Unavailable Ramandeep Espinal PA-C Primary Care Provider [phone] Encounter Details Date Type Department Care Team (Late st Contact Info) Description 07/12/2016 Scanned Document [address] [phone] Matthew Wyatt MD [address] [place] [address] 345651 Social History Tobacco Use Types Packs/Day Years [...] on filedocumented in this encounter Care Teams Squirrel Worker Relationship Specialty Start Date End Date Matthew Wyatt MD PCP - General Family Medicine 04/02/16 03/10/22 Matthew Wyatt MD [address] [place] [address] PCP - PCMH+ Attributed 05/30/19 2 Rosalinda Baez MD [address] [employer] [place] [phone] (Work) PCP - General Family Medicine 03/11/22 01/16/23 Rosalinda Baez MD [address] [address] PCP - PCMH+ Attributed 02/27/22 Ramandeep Espinal PA-C [address] [address] PCP - General Adult Health - PA/APNP/JEWEL GRINDER/NUDE MODEL 01/17/23 Lisa Velásquez, VETERINARY LIVESTOCK INSPECTOR [address] [place] [address] [facility] PCMH+ [place] 01/10/18 06/24/19 Emilie Carrera [address] [address] ICP Finished Cigar Maker 04/18/2010/12 documented as of this encounter
--- OUTSIDE RECORDS SUMMARY | 2025-05-20 17:45 | XMS_ITS | Encounter Summary ---
Author Organization [facility] Address [address] [place] [address] Care Team Providers Care In Home Aide Name Role Phone Ramandeep Espinal PA-C Primary Care Provider [phone] Encounter Details Date Type Department Care Team (Late st Contact Info) Description 06/25/2023 Scanned Document [address] [place] [phone] Provider, Generic Social History Tobacco Use Types [...] Narrative 06/25/2023 Ordered by an unspecified provider. us Generic Provider HX AMB PROCEDURES Final Result documented in this encounter Visit Diagnoses Not on filedocumented in this encounter Care Teams In Home Aide Relationship Specialty Start Date End Date Ramandeep Espinal PA-C PCP - General Adult Health - PA/APNP/ANNEALER HELPER/SENIOR TALENT ACQUISITION SPECIALIST 01/17/23 documented as of this encounter
--- OUTSIDE RECORDS SUMMARY | 2025-05-20 17:45 | XMS_ITS | Clinical Summary ---
Author Organization [facility] Address [address] [place] [address] Care Team Providers Care Steam Trap Worker Name Role Phone Pcp, No MD Primary [...] 68 11/21/2023 2:28 AM EDT Temperature 36.2 C (97.2 F) 11/21/2023 2:28 AM EDT Respiratory Rate 18 11/21/2023 2:28 AM EDT [...] of 3 - 19+ 3-dose series) 02/01/2003 HPV Vaccines (1 - 3-dose SCDM series) 02/01/2011 COVID-19 Vaccine ( season) 2025 10/08/2021, 01/16/2021, 12/26/2020 Influenza Vaccine (#1) 2025 9, 04/12/2018, 03/07/2017, Additional history exists DTaP,Tdap,and Td Vaccines (2 - Td or Tdap) 03/07/2027 03/07/2017 Zoster Vaccines (1 of 2) 02/01/2034 Hepatitis A Vaccines Aged Out No long er eligible based on patient's age to complete this topic MMR Vaccines Aged Out No longer eligi ble based on patient's age to complete this topic Meningococcal Vaccine Aged Out No venkata maranda eligible based on patient's age to complete this topic Pneumococcal Vaccine: At-Risk and Pediatric Patients (0 to 49 Years) Aged Out No longer eligi ble based on patient's age to complete this topic Insurance MEDICAID HUSKY A * Guarantor: TIFFANY KNOWLES Account Type Relation to Patient Date of Phone Billing Address [employer] State DOC State 1984 [facility] [address] [place] [phone] Care Teams Steam Trap Worker Relationship Specialty Start Date End Date Pcp, MD Geraldine [address] [place] [id number] PCP - General Internal Medicine 05/26/22
--- OUTSIDE RECORDS SUMMARY | 2025-05-20 17:45 | XMS_ITS | Encounter Summary ---
Author Organization [facility] Address [address] [place] [address] Care Team Providers Care Patient Case Coordinator Name Role Phone Matthew Wyatt MD Primary Care Provider [phone] Matthew Wyatt MD Unavailable [phone] Lisa Velásquez LCSW Unavailable [phone] Emilie Carrera Unavailable Rosalinda Baez MD Primary Care Provider [phone] Rosalinda Baez MD Unavailable Ramandeep Espinal PA-C Primary Care Provider [phone] Encounter Details Date Type Department Care Team (Late st Contact Info) Description 07/28/2017 Scanned Document [address] [phone] Provider, Generic Social History Tobacco Use Types [...] on filedocumented in this encounter Care Teams Patient Case Coordinator Relationship Specialty Start Date End Date Matthew Wyatt MD PCP - General Family Medicine 04/02/16 03/10/22 Matthew Wyatt MD [address] [place] [address] [place] [address] PCP - PCMH+ Attributed 05/30/19 2 Rosalinda Baez MD [address] [address] PCP - General Family Medicine 03/11/22 01/16/23 Rosalinda Baez MD [address] [address] PCP - PCMH+ Attributed 02/27/22 Ramandeep Espinal PA-C [address] [address] PCP - General Adult Health - PA/APNP/MEDICAL RADIATION DOSIMETRIST/SOUND ART INSTRUCTOR 01/17/23 Lisa Velásquez, HOT MILL ROLLER [address] [place] [address] ICP PCMH+ Supervisor White Sugar 01/10/18 06/24/19 Emilie Carrera [address] [address] ICP Jockey Valet 04/18/2010/12 documented as of this encounter
--- OUTSIDE RECORDS SUMMARY | 2025-05-20 17:45 | XMS_ITS | Encounter Summary ---
Author Organization [facility] Address [address] [place] [address] Care Team Providers Care Graphics Edit Technician Name Role Phone Matthew Wyatt MD Primary Care Provider [phone] Matthew Wyatt MD Unavailable [phone] Lisa Velásquez LCSW Unavailable [phone] Emilie Carrera Unavailable Rosalinda Baez MD Primary Care Provider [phone] Rosalinda Baez MD Unavailable Ramandeep Espinal PA-C Primary Care Provider [phone] Encounter Details Date Type Department Care Team (Late st Contact Info) Description 06/21/2016 Scanned Document [address] [phone] Matthew Wyatt MD [address] [place] [address] [phone] Social History Tobacco Use Types Packs/Day Years [...] on filedocumented in this encounter Care Teams Graphics Edit Technician Relationship Specialty Start Date End Date Matthew Wyatt MD PCP - General Family Medicine 04/02/16 03/10/22 Matthew Wyatt MD [address] [place] [address] PCP - PCMH+ Attributed 05/30/19 2 Rosalinda Baez MD [address] [employer] [place] [phone] (Work) PCP - General Family Medicine 03/11/22 01/16/23 Rosalinda Baez MD [address] [address] PCP - PCMH+ Attributed 02/27/22 Ramandeep Espinal PA-C [address] [address] PCP - General Adult Health - PA/APNP/YARN TESTER/PROPERTY AND EQUIPMENT CLERK 01/17/23 Lisa Velásquez, HYDRAULIC ROCKBREAKER OPERATOR [address] [place] [address] [facility] PCMH+ Repairer Welding Systems And Equipment 01/10/18 06/24/19 Emilie Carrera [address] [address] ICP Brick Extruder Operator 04/18/2010/12 documented as of this encounter
--- OUTSIDE RECORDS SUMMARY | 2025-05-20 17:45 | XMS_ITS | Encounter Summary ---
Author Organization [facility] Address [address] [place] [address] Care Team Providers Care Acute Care Nursing Assistant Name Role Phone Matthew Wyatt MD Primary Care Provider [phone] Matthew Wyatt MD Unavailable [phone] Lisa Velásquez LCSW Unavailable [phone] Emilie Carrera Unavailable Rosalinda Baez MD Primary Care Provider [phone] Rosalinda Baez MD Unavailable Ramandeep Espinal PA-C Primary Care Provider [phone] Encounter Details Date Type Department Care Team (Late st Contact Info) Description 04/26/2016 Scanned Document [address] [phone] Provider, Generic Social History Tobacco Use Types [...] on filedocumented in this encounter Care Teams Acute Care Nursing Assistant Relationship Specialty Start Date End Date Matthew Wyatt MD PCP - General Family Medicine 04/02/16 03/10/22 Matthew Wyatt MD [address] [place] [address] PCP - PCMH+ Attributed 05/30/19 2 Rosalinda Baez MD [address] [place] [address] PCP - General Family Medicine 03/11/22 01/16/23 Rosalinda Baez MD [address] [address] PCP - PCMH+ Attributed 02/27/22 Ramandeep Espinal PA-C [address] [address] PCP - General Adult Health - PA/APNP/BOOMSWING OPERATOR/MOLD MAINTENANCE TECHNICIAN 01/17/23 Lisa Velásquez, STITCH MARKER [address] [place] [address] ICP PCMH+ Welder Production Line Combination 01/10/18 06/24/19 Emilie Carrera [address] [place] [address] ICP Budget And Policy Analyst 04/18/2010/12 documented as of this encounter
--- OUTSIDE RECORDS SUMMARY | 2025-05-20 17:45 | XMS_ITS | Encounter Summary ---
Author Organization [facility] Address [address] [place] [address] Care Team Providers Care Home Health Aid Name Role Phone Matthew Wyatt MD Primary Care Provider [phone] Matthew Wyatt MD Unavailable [phone] Lisa Velásquez LCSW Unavailable [phone] Emilie Carrera Unavailable Rosalinda Baez MD Primary Care Provider [phone] Rosalinda Baez MD Unavailable Ramandeep Espinal PA-C Primary Care Provider [phone] Encounter Details Date Type Department Care Team (Late st Contact Info) Description 06/16/2016 Scanned Document [address] [phone] Matthew Wyatt MD [address] [place] [address] Social History Tobacco Use Types Packs/Day Years [...] on filedocumented in this encounter Care Teams Home Health Aid Relationship Specialty Start Date End Date Matthew Wyatt MD PCP - General Family Medicine 04/02/16 03/10/22 Matthew Wyatt MD [address] [place] [address] PCP - PCMH+ Attributed 05/30/19 2 Rosalinda Baez MD [address] [employer] [place] [phone] (Work) PCP - General Family Medicine 03/11/22 01/16/23 Rosalinda Baez MD [address] [address] PCP - PCMH+ Attributed 02/27/22 Ramandeep Espinal PA-C [address] [address] PCP - General Adult Health - PA/APNP/GTA/PROPERTY MAINTENANCE TECHNICIAN 01/17/23 Lisa Velásquez, KEY SANDER [address] [place] [address] [facility] PCMH+ Archeology Professor 01/10/18 06/24/19 Emilie Carrera [address] [employer] [address] [address] ICP Reeler Operator 04/18/2010/12 documented as of this encounter
--- OUTSIDE RECORDS SUMMARY | 2025-05-20 17:45 | XMS_ITS | Encounter Summary ---
Author Organization [facility] Address [address] [place] [address] Care Team Providers Care Ophthalmic Pathologist Name Role Phone Matthew Wyatt MD Primary Care Provider [phone] Matthew Wyatt MD Unavailable [phone] Lisa Velásquez LCSW Unavailable [phone] Emilie Carrera Unavailable Rosalinda Baez MD Primary Care Provider [phone] Rosalinda Baez MD Unavailable Ramandeep Espinal PA-C Primary Care Provider [phone] Encounter Details Date Type Department Care Team (Late st Contact Info) Description 06/30/2017 Scanned Document [address] [phone] Provider, Generic Social History Tobacco Use Types [...] on filedocumented in this encounter Care Teams Ophthalmic Pathologist Relationship Specialty Start Date End Date Matthew Wyatt MD PCP - General Family Medicine 04/02/16 03/10/22 Matthew Wyatt MD [address] [place] [address] [place] [address] PCP - PCMH+ Attributed 05/30/19 2 Rosalinda Baez MD [address] [address] PCP - General Family Medicine 03/11/22 01/16/23 Rosalinda Beaz MD [address] [address] PCP - PCMH+ Attributed 02/27/22 Ramandeep Espinal PA-C [address] [address] PCP - General Adult Health - PA/APNP/LINUX SYSTEM ENGINEER/BINDING FOLDER MACHINE 01/17/23 Lisa Velásquez, ASIC ENGINEER [address] [place] [address] ICP PCMH+ Assembly Supervisor 01/10/18 06/24/19 Emilie Carrera [address] y [address] [address] ICP Milk Drying Machine Operator 04/18/2010/12 documented as of this encounter
== END 2025-05-20 15:21 | disposition home or self-care (01) ==
LOC: HO.HMCHD 14:17
PROVIDERS: Visit Provider Student in an Organized Health Care Education/Training Program
DX: R10.84 Generalized abdominal pain (principal); R19.4 Change in bowel habit; F41.9 Anxiety disorder, unspecified; F32.A Depression, unspecified; R21 Rash and other nonspecific skin eruption; N50.89 Other specified disorders of the male genital organs; N52.1 Erectile dysfunction due to diseases classified elsewhere